=== PATIENT | female | born 1985 | race Caucasian/White ===

== ENCOUNTER 2018-08-28 09:48 | Emergency (ER) | payer MEDICAID ==
--- NOTE | 2018-08-28 09:54 | EDM.PDOC ---
ED HPI GENERAL MEDICAL PROBLEM - General Chief Complaint: Abdominal Pain Stated Complaint: WITH ABDOMINAL PAIN Time Seen by Provider: 08/28/18 09:53 Source of Information: Reports: Patient History Limitations: Reports: No Limitations - History of Present Illness INITIAL COMMENTS - FREE TEXT/NARRATIVE: HISTORY AND PHYSICAL: History of present illness: Patient is a 33-year-old female who presents to the emergency room with complaints of generalized abdominal pain since last night. She states 3 days ago she did take a test, which was positive. She denies any abdominal cramping, back pain, vaginal bleeding or discharge. Patient denies any fever, chills, headache, change in vision, syncope or near syncope. Denies any chest pain, shortness of breath or cough. Denies any nausea, vomiting, diarrhea, constipation or dysuria. Has not noted any blood in urine or stool. Patient has been eating and drinking appropriately. Last menstrual period was 07/25/2018. 2, para 1. Recently moved here from [place], does not have any primary care or [facility] care here. Review of systems: As per history of present illness and below otherwise all systems reviewed and negative. Past medical history: As per history of present illness and as reviewed below otherwise noncontributory. Surgical history: As per history of present illness and as reviewed below otherwise noncontributory. Social history: See social history for further information Family history: As per history of present illness and as reviewed below otherwise noncontributory. Physical exam: General: Well-developed and well-nourished 33-year-old female. Alert and oriented. Nontoxic appearing and in no acute distress. HEENT: Atraumatic, normocephalic, pupils equal and reactive bilaterally, negative for conjunctival pallor or scleral icterus, mucous membranes moist, trachea midline. No drooling or trismus noted. No meningeal signs. No hot potato voice noted. Lungs: Clear to auscultation, breath sounds equal bilaterally, chest nontender. Heart: S1S2, regular rate and rhythm without overt murmur Abdomen: Soft, nondistended, nontender. Negative for masses or hepatosplenomegaly. Negative for costovertebral tenderness. Pelvis: Stable nontender. Genitourinary: External genitalia appears within normal limits. Cervical os is closed. No vaginal discharge or blood noted in the vaginal vault. Patient has no tenderness speculum exam. Negative chandelier sign. Rectal: Deferred. Skin: Intact, warm, dry. No lesions or rashes noted. Extremities: Atraumatic, moves all extremities per self without difficulty or deficits, negative for cords or calf pain. Neurovascular unremarkable. Neuro: Awake, alert, oriented. Cranial nerves II through XII unremarkable. Cerebellum unremarkable. Motor and sensory unremarkable throughout. Exam nonfocal. Notes: Patient did report that she is a daily smoker but is currently trying to cut back. Prior to finding out she was she was a daily drinker as well. She has not drink in the past 2 weeks she reports. Denies any drug use. Lab work is unremarkable. Vital signs remained stable. US shows findings suspicious for a right adnexal ectopic gestation.Small amount of free fluid in the right adnexal region and in the cul-de-sac. Dr Polanco, unassigned OBGYN, was consulted on this patient. Come in and evaluate the patient. Dr Polanco here to evaluate patient. She would like to see the patient on Friday for further evaluation and management. We did give her community resource sheet with local Supportive care measures were reviewed and discussed. Voices understanding and is agreeable to plan of care. Denies any further questions or concerns at this time. Diagnostics: CBC, CMP, UA, urine , quantitative hCG, lipase Therapeutics: None Prescription: None Impression: Abdominal Pain in First Trimester Plan: 1. Stop Smoking. 2. Take vitamin daily. Tylenol as needed for pain. 3. You have an appointment with Dr Polanco on 09/01/2018 at 3:30pm at [facility]. 4. Return to the ED as needed as discussed. Definitive disposition and diagnosis as appropriate pending reevaluation and review of above. abd Pain Score (Numeric/FACES): 5 headache Pain Score (Numeric/FACES): 3 - Related Data Allergies Allergy/AdvReac Type Severity Reaction Status Date / Time Penicillins Allergy Rash Verified 08/28/18 09:59 Home Meds: Home Meds . [No Known Home Meds] 08/28/18 [History] ED ROS GENERAL - Review of Systems Review Of Systems: ROS reveals no pertinent complaints other than HPI. ED EXAM, GI/ABD - Physical Exam Exam: See Below (See dictation) Course - Vital Signs Last Recorded V/S: Last Vital Signs Temp 96.9 F 08/28/18 09:59 Pulse 89 08/28/18 12:20 Resp 18 08/28/18 09:59 BP 116/68 08/28/18 12:20 Pulse Ox 98 08/28/18 09:59 - Orders/Labs/Meds Labs: Laboratory Tests 08/28/18 08/28/18 08/28/18 Range/Units 10:00 10:00 10:00 WBC 8.66 (4.0-11.0) K/uL RBC 4.13 L (4.30-5.90) M/uL Hgb 13.2 (12.0-16.0) g/dL Hct 39.8 (36.0-46.0) % MCV 96.4 (80.0-98.0) fL MCH 32.0 (27.0-32.0) pg MCHC 33.2 (31.0-37.0) g/dL RDW Std Deviation 44.1 (28.0-62.0) fl RDW Coeff of Cee 13 (11.0-15.0) % Plt Count 283 (150-400) K/uL MPV 9.20 (7.40-12.00) fL Neut % (Auto) 64.5 (48.0-80.0) % Lymph % (Auto) 28.6 (16.0-40.0) % [place] % (Auto) 5.4 (0.0-15.0) % Eos % (Auto) 1.2 (0.0-7.0) % Baso % (Auto) 0.3 (0.0-1.5) % Neut # (Auto) 5.6 (1.4-5.7) K/uL Lymph # (Auto) 2.5 H (0.6-2.4) K/uL [place] # (Auto) 0.5 (0.0-0.8) K/uL Eos # (Auto) 0.1 (0.0-0.7) K/uL Baso # (Auto) 0.0 (0.0-0.1) K/uL Nucleated RBC % 0.0 /100WBC Nucleated RBCs # 0 K/uL Sodium 138 (136-145) mmol/L Potassium 3.7 (3.5-5.1) mmol/L Chloride 104 (98-107) mmol/L Carbon Dioxide 25.8 (21.0-32.0) mmol/L BUN 14 (7.0-18.0) mg/dL Creatinine 0.7 (0.6-1.0) mg/dL Est Cr Clr Drug Dosing 81.34 mL/min Estimated GFR (MDRD) > 60.0 ml/min Glucose 88 (74-106) mg/dL Calcium 8.9 (8.5-10.1) mg/dL Total Bilirubin 0.3 (0.2-1.0) mg/dL AST 59 H (15-37) IU/L ALT 112 H (14-63) IU/L Alkaline Phosphatase 117 H (46-116) U/L Total Protein 7.3 (6.4-8.2) g/dL Albumin 3.6 (3.4-5.0) g/dL Globulin 3.7 (2.6-4.0) g/dL Albumin/Globulin Ratio 1.0 (0.9-1.6) Lipase 259 (73-393) U/L HCG, Quant 337.0 mIU/mL Urine Color Urine Appearance Urine pH (5.0-8.0) Ur Specific [place] (1.001-1.035) Urine Protein (NEGATIVE) mg/dL Urine Glucose (UA) (NEGATIVE) mg/dL Urine Ketones (NEGATIVE) mg/dL Urine Occult Blood (NEGATIVE) Urine Nitrite (NEGATIVE) Urine Bilirubin (NEGATIVE) Urine Urobilinogen (<2.0) EU/dL Ur Leukocyte Esterase (NEGATIVE) 08/28/18 Range/Units 10:05 WBC (4.0-11.0) K/uL RBC (4.30-5.90) M/uL Hgb (12.0-16.0) g/dL Hct (36.0-46.0) % MCV (80.0-98.0) fL MCH (27.0-32.0) pg MCHC (31.0-37.0) g/dL RDW Std Deviation (28.0-62.0) fl RDW Coeff of Cee (11.0-15.0) % Plt Count (150-400) K/uL MPV (7.40-12.00) fL Neut % (Auto) (48.0-80.0) % Lymph % (Auto) (16.0-40.0) % [place] % (Auto) (0.0-15.0) % Eos % (Auto) (0.0-7.0) % Baso % (Auto) (0.0-1.5) % Neut # (Auto) (1.4-5.7) K/uL Lymph # (Auto) (0.6-2.4) K/uL [place] # (Auto) (0.0-0.8) K/uL Eos # (Auto) (0.0-0.7) K/uL Baso # (Auto) (0.0-0.1) K/uL Nucleated RBC % /100WBC Nucleated RBCs # K/uL Sodium (136-145) mmol/L Potassium (3.5-5.1) mmol/L Chloride (98-107) mmol/L Carbon Dioxide (21.0-32.0) mmol/L BUN (7.0-18.0) mg/dL Creatinine (0.6-1.0) mg/dL Est Cr Clr Drug Dosing mL/min Estimated GFR (MDRD) ml/min Glucose (74-106) mg/dL Calcium (8.5-10.1) mg/dL Total Bilirubin (0.2-1.0) mg/dL AST (15-37) IU/L ALT (14-63) IU/L Alkaline Phosphatase (46-116) U/L Total Protein (6.4-8.2) g/dL Albumin (3.4-5.0) g/dL Globulin (2.6-4.0) g/dL Albumin/Globulin Ratio (0.9-1.6) Lipase (73-393) U/L HCG, Quant mIU/mL Urine Color YELLOW Urine Appearance CLEAR Urine pH 6.5 (5.0-8.0) Ur Specific [place] 1.010 (1.001-1.035) Urine Protein NEGATIVE (NEGATIVE) mg/dL Urine Glucose (UA) NEGATIVE (NEGATIVE) mg/dL Urine Ketones NEGATIVE (NEGATIVE) mg/dL Urine Occult Blood NEGATIVE (NEGATIVE) Urine Nitrite NEGATIVE (NEGATIVE) Urine Bilirubin NEGATIVE (NEGATIVE) Urine Urobilinogen 0.2 (<2.0) EU/dL Ur Leukocyte Esterase NEGATIVE (NEGATIVE) Departure - Departure Time of Disposition: 13:01 Disposition: Home, Self-Care 01 Clinical Impression: Abdominal pain during in first trimester - Discharge Information Referrals: PCP,None [Primary Care Provider] - Forms: ED Department Discharge Additional Instructions: The following information is given to patients seen in the emergency department who are being discharged to home. This information is to outline your options for follow-up care. We provide all patients seen in our emergency department with a follow-up referral. The need for follow-up, as well as the timing and circumstances, are variable depending upon the specifics of your emergency department visit. If you don't have a primary care physician on staff, we will provide you with a referral. We always advise you to contact your personal physician following an emergency department visit to inform them of the circumstance of the visit and for follow-up with them and/or the need for any referrals to a consulting specialist. The emergency department will also refer you to a specialist when appropriate. This referral assures that you have the opportunity for follow-up care with a specialist. All of these measure are taken in an effort to provide you with optimal care, which includes your follow-up. Under all circumstances we always encourage you to contact your private physician who remains a resource for coordinating your care. When calling for follow-up care, please make the office aware that this follow-up is from your recent emergency room visit. If for any reason you are refused follow-up, please contact the [facility] Emergency Department at and asked to speak to the emergency department charge nurse. [facility] [address] [place] [id number] 1. Stop Smoking. 2. Take vitamin daily. Tylenol as needed for pain. 3. You have an appointment with Dr Polanco on 09/01/2018 at 3:30pm at [facility]. 4. Return to the ED as needed as discussed.
[2018-08-28 10:51] LABS: CHLORIDE,CL 104 mmol/L (98-107); SODIUM,NA 138 mmol/L (136-145)
--- NOTE | 2018-08-28 12:14 | US ---
INDICATION: Pelvic pain. . Beta hCG 337. COMPARISON: None available. FINDINGS: Transvaginal ultrasound examination of the female pelvis was performed. No identifiable intrauterine gestational sac is seen. The uterus is anteverted and is normal in size. It measures SIZE cm. There is a small hypoechoic fibroid in the posterior uterine fundus measuring 1.2 centimeters in diameter. The endometrial lining is prominently increased in thickness at 15 mm, consistent with . The right ovary has a complex solid structure with prominently increased peripheral color Doppler flow measuring 2.1 by 1.7 centimeters, concerning for an ectopic gestation. There is no identifiable gestational sac or pole in this structure. There is a mild amount of free fluid adjacent to the right ovary. The right ovary is normal in size, measuring 3.2 x 3.8 x 1.8 centimeters. The left ovary is normal in appearance, with normal appearing follicular cysts. It measures 3.0 x 2.8 x 1.2 centimeters. There is normal color and pulse Doppler flow in the parenchyma of both ovaries. There is a tiny amount of free fluid in the cul-de-sac. The findings were discussed with ARON Galeana at 12 0 5 hours on 08/28/2018. IMPRESSION: Findings suspicious for a right adnexal ectopic gestation as described above. Small amount of free fluid in the right adnexal region and in the cul-de-sac. No sign of intrauterine gestation. Dictated by Emanuel Schultz MD @ Aug 28 2018 12:03PM Signed by Dr. Emanuel Schultz @ Aug 28 2018 12:12PM
--- NOTE | 2018-08-28 13:29 | PCM.CONS ---
H&P History of Present Illness - General Date of Service: 08/28/18 Admit Problem/Dx: Early , abdominal pain Source of Information: Patient History Limitations: Reports: No Limitations - History of Present Illness Initial Comments - Free Text/Narative: 33 yo with LMP 07/14/18 presents with an onset of lower abdominal pain last night. It is quite vague and has an occasional slight stabbing sensation-- but does not limit activity. She has had no vaginal bleeding. She was aware she was and concerned about the pain. She has just moved to [facility]. She denies vaginal discharge, itching or burning. Denies dysuria. No fever or chills. No nausea or vomiting. Quality: Reports: Ache, Dull, Stabbing (at times) abd Pain Score (Numeric/FACES): 5 headache Pain Score (Numeric/FACES): 3 - Related Data Allergies/Adverse Reactions: Allergies Allergy/AdvReac Type Severity Reaction Status Date / Time Penicillins Allergy Rash Verified 08/28/18 09:59 Home Medications: Home Meds . 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 Denies: Bloody Stool, Diarrhea, Decreased Appetite, Difficulty Swallowing, Hematemesis, Nausea (see HPI) Musculoskeletal: Reports: No Symptoms Skin: Reports: No Symptoms Psychiatric: Reports: No Symptoms Neurological: Reports: No Symptoms Hematologic/Lymphatic: Reports: No Symptoms Immunologic: Reports: No Symptoms Exam - Exam Exam: See Below - Vital Signs Vital Signs: Last Vital Signs Temp 36.1 C 08/28/18 09:59 Pulse 89 08/28/18 12:20 Resp 18 08/28/18 09:59 BP 116/68 08/28/18 12:20 Pulse Ox 98 08/28/18 09:59 Weight: 54.431 kg - Exam General: Alert, Oriented Lungs: Normal Respiratory Effort Cardiovascular: Regular Rate, Regular Rhythm GI/Abdominal Exam: Normal Bowel Sounds, Soft, No Distention. No: Guarding, Rigid, Rebound Back Exam: Normal Inspection, Full Range of Motion Extremities: Normal Inspection, Normal Range of Motion Skin: Warm, Dry, Intact Neuro Extensive - Mental Status: Alert, Oriented x3, Normal Mood/Affect, Normal Cognition Psychiatric: Alert, Normal Affect - Patient Data Lab Results Last 24 hrs: Laboratory Results - last 24 hr 08/28/18 08/28/18 08/28/18 Range/Units 10:00 10:00 10:00 WBC 8.66 (4.0-11.0) K/uL RBC 4.13 L (4.30-5.90) M/uL Hgb 13.2 (12.0-16.0) g/dL Hct 39.8 (36.0-46.0) % MCV 96.4 (80.0-98.0) fL MCH 32.0 (27.0-32.0) pg MCHC 33.2 (31.0-37.0) g/dL RDW Std Deviation 44.1 (28.0-62.0) fl RDW Coeff of Cee 13 (11.0-15.0) % Plt Count 283 (150-400) K/uL MPV 9.20 (7.40-12.00) fL Neut % (Auto) 64.5 (48.0-80.0) % Lymph % (Auto) 28.6 (16.0-40.0) % [place] % (Auto) 5.4 (0.0-15.0) % Eos % (Auto) 1.2 (0.0-7.0) % Baso % (Auto) 0.3 (0.0-1.5) % Neut # (Auto) 5.6 (1.4-5.7) K/uL Lymph # (Auto) 2.5 H (0.6-2.4) K/uL [place] # (Auto) 0.5 (0.0-0.8) K/uL Eos # (Auto) 0.1 (0.0-0.7) K/uL Baso # (Auto) 0.0 (0.0-0.1) K/uL Nucleated RBC % 0.0 /100WBC Nucleated RBCs # 0 K/uL Sodium 138 (136-145) mmol/L Potassium 3.7 (3.5-5.1) mmol/L Chloride 104 (98-107) mmol/L Carbon Dioxide 25.8 (21.0-32.0) mmol/L BUN 14 (7.0-18.0) mg/dL Creatinine 0.7 (0.6-1.0) mg/dL Est Cr Clr Drug Dosing 81.34 mL/min Estimated GFR (MDRD) > 60.0 ml/min Glucose 88 (74-106) mg/dL Calcium 8.9 (8.5-10.1) mg/dL Total Bilirubin 0.3 (0.2-1.0) mg/dL AST 59 H (15-37) IU/L ALT 112 H (14-63) IU/L Alkaline Phosphatase 117 H (46-116) U/L Total Protein 7.3 (6.4-8.2) g/dL Albumin 3.6 (3.4-5.0) g/dL Globulin 3.7 (2.6-4.0) g/dL Albumin/Globulin Ratio 1.0 (0.9-1.6) Lipase 259 (73-393) U/L HCG, Quant 337.0 mIU/mL Urine Color Urine Appearance Urine pH (5.0-8.0) Ur Specific [place] (1.001-1.035) Urine Protein (NEGATIVE) mg/dL Urine Glucose (UA) (NEGATIVE) mg/dL Urine Ketones (NEGATIVE) mg/dL Urine Occult Blood (NEGATIVE) Urine Nitrite (NEGATIVE) Urine Bilirubin (NEGATIVE) Urine Urobilinogen (<2.0) EU/dL Ur Leukocyte Esterase (NEGATIVE) 08/28/18 Range/Units 10:05 WBC (4.0-11.0) K/uL RBC (4.30-5.90) M/uL Hgb (12.0-16.0) g/dL Hct (36.0-46.0) % MCV (80.0-98.0) fL MCH (27.0-32.0) pg MCHC (31.0-37.0) g/dL RDW Std Deviation (28.0-62.0) fl RDW Coeff of Cee (11.0-15.0) % Plt Count (150-400) K/uL MPV (7.40-12.00) fL Neut % (Auto) (48.0-80.0) % Lymph % (Auto) (16.0-40.0) % [place] % (Auto) (0.0-15.0) % Eos % (Auto) (0.0-7.0) % Baso % (Auto) (0.0-1.5) % Neut # (Auto) (1.4-5.7) K/uL Lymph # (Auto) (0.6-2.4) K/uL [place] # (Auto) (0.0-0.8) K/uL Eos # (Auto) (0.0-0.7) K/uL Baso # (Auto) (0.0-0.1) K/uL Nucleated RBC % /100WBC Nucleated RBCs # K/uL Sodium (136-145) mmol/L Potassium (3.5-5.1) mmol/L Chloride (98-107) mmol/L Carbon Dioxide (21.0-32.0) mmol/L BUN (7.0-18.0) mg/dL Creatinine (0.6-1.0) mg/dL Est Cr Clr Drug Dosing mL/min Estimated GFR (MDRD) ml/min Glucose (74-106) mg/dL Calcium (8.5-10.1) mg/dL Total Bilirubin (0.2-1.0) mg/dL AST (15-37) IU/L ALT (14-63) IU/L Alkaline Phosphatase (46-116) U/L Total Protein (6.4-8.2) g/dL Albumin (3.4-5.0) g/dL Globulin (2.6-4.0) g/dL Albumin/Globulin Ratio (0.9-1.6) Lipase (73-393) U/L HCG, Quant mIU/mL Urine Color YELLOW Urine Appearance CLEAR Urine pH 6.5 (5.0-8.0) Ur Specific [place] 1.010 (1.001-1.035) Urine Protein NEGATIVE (NEGATIVE) mg/dL Urine Glucose (UA) NEGATIVE (NEGATIVE) mg/dL Urine Ketones NEGATIVE (NEGATIVE) mg/dL Urine Occult Blood NEGATIVE (NEGATIVE) Urine Nitrite NEGATIVE (NEGATIVE) Urine Bilirubin NEGATIVE (NEGATIVE) Urine Urobilinogen 0.2 (<2.0) EU/dL Ur Leukocyte Esterase NEGATIVE (NEGATIVE) Result Diagrams: 08/28/18 10:00 08/28/18 10:00 Consult PN Assessment/Plan (1) Abdominal pain during in first trimester SNOMED Code(s): 922135380 Code(s): O26.891 - OTH RELATED CONDITIONS, FIRST TRIMESTER; R10.9 - UNSPECIFIED ABDOMINAL PAIN Assessment:: Approximately 3-4 week Abdominal pain Problem List Initiated/Reviewed/Updated: Yes Plan: VS are stable, hemoglobin is normal. Quant is only 337. She does not have an acute abdomen. Discussed ultrasound findings of thickened endometrium and ovaries with a 2 cm complex right ovarian mass/cyst. This may very well be her corpus luteum--images are limited. However, ectopic has not been ruled out. Patient voices her understanding to this. At this juncture, she states she is capable of receiving ongoing care locally. Transportation is not an issue. Discussed we are very early into the and need some serial follow up to determine the course of the . She voices her understanding. My clinic number is provided for her. She will call with vaginal bleeding or increasing abdominal pain. Otherwise, will follow up with her in clinic early next week for follow up labs, exam and sonogram. She agrees to plan of care.
== END 2018-08-28 13:10 | disposition home or self-care (01) ==
LOC: MW.ED 09:48
DX: O99.89 Other specified diseases and conditions complicating pregnancy, childbirth and the puerperium (principal); R10.84 Generalized abdominal pain; Z88.0 Allergy status to penicillin; Z3A.01 Less than 8 weeks gestation of pregnancy
CPT/HCPCS: 36415; 76817; 76817-26; 80053; 81003; 83690; 84702; 85025; 99284-25

== ENCOUNTER 2018-09-21 09:06 | Day surgery (SDC) | payer MEDICAID ==
[~2018-09-21 09:06] MED LIST: Bupivacaine 0.25% 10 ML SDV ONE; Clindamycin Phosphate in D5W 900 MG in Premix Bag 1 BAG IV SCH; Fluorescein 5 ML Vial ONE; Lactated Ringers 1,000 ML IV SCH; Sodium Chloride 0.9% 10 ML SDV IV PRN; Sodium Chloride 0.9% 10 ML Syringe FLUSH PRN; Sodium Chloride 0.9% 2.5 ML Syringe FLUSH PRN
[2018-09-21] MEDS ORDERED: Ondansetron 4 MG/2 ML SDV ONE (10:24)
[2018-09-21] MEDS ORDERED: Neostigmine Methylsulfate 1 MG/ML 5 ML Syringe ONE (10:24)
[2018-09-21] MEDS ORDERED: Glycopyrrolate 0.2 MG/ML SDV ONE (10:24)
[2018-09-21] MEDS ORDERED: Lidocaine 2% 5 ML SDV ONE (10:24)
[2018-09-21] MEDS ORDERED: Propofol 200 MG/20 ML SDV ONE (10:24)
[2018-09-21] MEDS ORDERED: Rocuronium 100 MG/10 ML MDV ONE (10:24)
[2018-09-21] MEDS ORDERED: fentaNYL 250 MCG/5 ML SDV ONE (10:25)
--- NOTE | 2018-09-21 10:25 | PCM.PREANE ---
Preanesthetic Assessment - Anesthesia/Transfusion/Family Hx Anesthesia History: No Prior Anesthesia Other Type of Anesthesia Reaction Comment: denies anesthesia with prior procedures Family History of Anesthesia Reaction: No Transfusion History: Prior Transfusion Without Reaction - Review of Systems General: No Symptoms Pulmonary: No Symptoms Cardiovascular: No Symptoms Gastrointestinal: No Symptoms Neurological: No Symptoms Other: Reports: None - Physical Assessment NPO Status Date: 09/20/18 NPO Status Time: 22:00 O2 Sat by Pulse Oximetry: 96 Respiratory Rate: 16 Vital Signs: Last Vital Signs Temp 97.5 F 09/21/18 09:20 Pulse 89 09/21/18 09:20 Resp 16 09/21/18 09:20 BP 104/55 L 09/21/18 09:20 Pulse Ox 96 09/21/18 09:20 Height: 4 ft 11 in Weight: 55.792 kg ASA Class: 2 Mental Status: Alert & Oriented x3 Airway Class: Mallampati = 2 Dentition: Reports: Normal Dentition ROM/Head Extension: Other Lungs: Clear to Auscultation, Normal Respiratory Effort Cardiovascular: Regular Rate, Regular Rhythm - Lab Values: Laboratory Last Values WBC 7.91 K/uL (4.0-11.0) 09/21/18 09:21 RBC 3.89 M/uL (4.30-5.90) L 09/21/18 09:21 Hgb 12.6 g/dL (12.0-16.0) 09/21/18 09:21 Hct 36.6 % (36.0-46.0) 09/21/18 09:21 MCV 94.1 fL (80.0-98.0) 09/21/18 09:21 MCH 32.4 pg (27.0-32.0) H 09/21/18 09:21 MCHC 34.4 g/dL (31.0-37.0) 09/21/18 09:21 RDW Std Deviation 41.2 fl (28.0-62.0) 09/21/18 09:21 RDW Coeff of Cee 12 % (11.0-15.0) 09/21/18 09:21 Plt Count 275 K/uL (150-400) 09/21/18 09:21 MPV 9.00 fL (7.40-12.00) 09/21/18 09:21 Nucleated RBC % 0.0 /100WBC 09/21/18 09:21 Nucleated RBCs # 0 K/uL 09/21/18 09:21 HCG, Qual POSITIVE (NEG) H 09/21/18 09:21 - Allergies Allergies/Adverse Reactions: Allergies Allergy/AdvReac Type Severity Reaction Status Date / Time Penicillins Allergy Hives Verified 09/16/18 11:20 - Anesthesia Plan Pre-Op Medication Ordered: None - Acknowledgements Anesthesia Type Planned: General Anesthesia Pt an Appropriate Candidate for the Planned Anesthesia: Yes Alternatives and Risks of Anesthesia Discussed w Pt/Guardian: Yes Pt/Guardian Understands and Agrees with Anesthesia Plan: Yes Additional Comments: anes prob list: hep C- not yet treated, hx of AUD- in prolongued remission x 1 yr, heteropic 7 weeks PLAN: GET PreAnesthesia Questionnaire HEENT History: Reports: None Respiratory History: Reports: Asthma Other Respiratory History: hx of Exercised induced Asthma as a child- does not use an inhaler now Gastrointestinal History: Reports: Hepatitis Other Gastrointestinal History: hx of Hepatitis C DIGITAL COMMENTATOR History: Reports: Ectopic , Psychiatric History: Reports: Addiction, Depression Hematologic History: Reports: Blood Transfusion(s) Other Hematologic History: had a blood transfusion from her mother as a because of Rh incompatability - Infectious Disease History Infectious Disease History: Reports: Hepatitis C - Past Surgical History HEENT Surgical History: Reports: Oral Surgery Other HEENT Surgeries/Procedures: wisdom teeth removal Female Surgical History: Reports: D&C, LEEP - SUBSTANCE USE Smoking Status *Q: Current Every Day Smoker Tobacco Use Within Last Twelve Months: Cigarettes Recreational Drug Use History: Yes - HOME MEDS Home Medications: Home Meds Vit No.78/Iron/Fa [Prenatabs FA] 1 tab PO DAILY 09/16/18 [History] - CURRENT (IN HOUSE) MEDS Current Meds: Current Medications Clindamycin Phosphate 900 mg/ (Premix) 50 mls @ 89.286 mls/hr IV ONETIME JUDY Last Admin: 09/21/18 09:49 Dose: 89.286 mls/hr Lactated Ringer's (Ringers, Lactated) 1,000 mls @ 125 mls/hr IV ASDIRECTED JUDY Sodium Chloride (Saline Flush) 10 ml FLUSH ASDIRECTED PRN PRN Reason: Keep Vein Open Sodium Chloride (Saline Flush) 2.5 ml FLUSH ASDIRECTED PRN PRN Reason: Keep Vein Open Sodium Chloride (Normal Saline) 10 ml IV ASDIRECTED PRN PRN Reason: IV Use Discontinued Medications Bupivacaine HCl (Sensorcaine-Mpf 0.25%) Confirm Administered Dose 10 ml .ROUTE .[facility]-MED ONE Stop: 09/21/18 07:40 Fluorescein Sodium (Ak-Fluor) Confirm Administered Dose 5 ml .ROUTE .[facility]-MED ONE Stop: 09/21/18 07:40
[2018-09-21] MEDS ORDERED: Bupivacaine 0.25% 10 ML SDV ONE ×2 (11:34→11:35)
[2018-09-21] MEDS ORDERED: Dexamethasone 4 MG/ML 5 ML MDV ONE (12:32)
[2018-09-21] MEDS ORDERED: fentaNYL 100 MCG/2 ML SDV IVPUSH PRN (13:19)
--- NOTE | 2018-09-21 13:27 | PCM.OPNOTE ---
- General Post-Op/Procedure Note Date of Surgery/Procedure: 09/21/18 Operative Procedure(s): Operative laparoscopy with excision of right ovarian masses Findings: Normal appearing fallopian tubes. Normal appearing left ovary. Right ovary with 2 ovarian masses. Pre Op Diagnosis: Right adnexal mass/possible heterotopic Post-Op Diagnosis: Same Anesthesia Technique: General ET Tube Primary Surgeon: Gi Polanco Currency Machine Operator: Angela Polk Fluid Replacement, Intraop: 1,300 EBL in mLs: 10 Complications: none known Condition: Stable Free Text/Narrative:: Dictation [id number]
--- NOTE | 2018-09-21 13:42 | PCM.POSTAN ---
POST ANESTHESIA ASSESSMENT - MENTAL STATUS Mental Status: Alert, Oriented - RESPIRATORY Respiratory Status: Respiratory Rate WNL, Airway Patent, O2 Saturation Stable - CARDIOVASCULAR CV Status: Pulse Rate WNL, Blood Pressure Stable - GASTROINTESTINAL GI Status: No Symptoms - POST OP HYDRATION Hydration Status: Adequate & Stable
--- NOTE | 2018-09-21 13:52 | PCM48HPAN ---
Post Anesthesia Note - EVALUATION WITHIN 48HRS OF ANESTHETIC Vital Signs in Normal Range: Yes Patient Participated in Evaluation: Yes Respiratory Function Stable: Yes Airway Patent: Yes Cardiovascular Function Stable: Yes Hydration Status Stable: Yes Pain Control Satisfactory: Yes Nausea and Vomiting Control Satisfactory: Yes Mental Status Recovered: Yes Resp Rate: 15
--- NOTE | 2018-09-21 15:16 | US ---
EXAMINATION: Transvaginal obstetric ultrasound HISTORY: COMPARISON: 08/28/2018 TECHNIQUE: Grayscale, color Doppler, and spectral Doppler imaging obtained. FINDINGS: There is a single live intrauterine noted with a visualized pole and yolk sac. heart rate is 151 bpm. The crown-rump length measures 1.3 cm, giving an estimated gestational age at 7 weeks and 3 days and estimated date of delivery to 10/18/2019. Right ovary is mildly prominent in size and demonstrates an elongated appearance. Left ovary appears normal in size demonstrating normal color and spectral Doppler flow. Small amount of free fluid within the right adnexa. IMPRESSION: 1. Live Intrauterine is noted . 2. The right adnexa is heterogeneous with an elongated appearance to the ovary.
--- NOTE | 2018-09-21 16:34 | OR ---
SURGEON: Gi Polanco M.D. DATE OF PROCEDURE: 09/21/2018 PREOPERATIVE DIAGNOSIS: Right adnexal mass, possible heterotopic . POSTOPERATIVE DIAGNOSIS: Right adnexal mass, possible heterotopic . PROCEDURE: Operative laparoscopy with excision of right ovarian masses. PRIMARY SURGEON: Gi Polanco MD. TREE KILLER: Nathalie Polk. ANESTHESIA: General endotracheal anesthesia. FLUIDS: 1300 mL of crystalloid. ESTIMATED BLOOD LOSS: 10 mL. COMPLICATIONS: None known. FINDINGS: Right ovarian masses. Normal-appearing fallopian tubes. Normal-appearing left ovary. DISPOSITION: The patient to PACU in stable condition. PROCEDURE DETAILS: Anamaria is a 33-year-old female, who recently was seen initially in the emergency department with some vague abdominal discomfort. Ultrasound was concerning for gestational sac with right adnexal mass, possible ectopic . With followup in serial HCG levels and sonogram, actually developed an intrauterine with cardiac activity and a persistent right adnexal mass with peripheral vascular blood flow that was concerning for ectopic . The patient actually saw Perinatology last week, who confirmed that this was quite suspicious for possible heterotopic . Given these findings, and after a long discussion, the patient opted to proceed with surgical intervention in form of laparoscopy to further evaluate the right adnexa and treatment of an ectopic present. The patient understands risks of the procedure, especially risks in the first trimester of with the intrauterine present. Anesthesia has been notified and has consulted with the patient. The patient understands there is no guarantee of outcome in the first trimester of for the intrauterine . After proper consent was obtained, the patient was taken to the operating room where she underwent general endotracheal anesthesia, was placed in modified dorsal supine position. SCDs to lower extremity. Bladder was drained. Was prepped and draped in usual sterile fashion. A time-out was performed. Received clindamycin prophylactically. Infraumbilically, after prepping the region with 0.25% Marcaine, 5 mm skin incision was created. Anterior abdominal wall tented upward. Veress needle was then gently introduced. Saline hanging drop test was performed. Pneumoperitoneum was achieved. After removal of Veress needle, 5 mm trocar was introduced with laparoscope, peritoneal contents were identified. A right lower quadrant 10 mm trocar and a left lower quadrant 5 mm trocar now introduced under direct visualization after prepping these regions with 0.25% Marcaine and creating incisions. The uterus was able to be visualized gently. I isolated the right fallopian tube and followed out to the fimbriated end. There was really no mass associated with the right fallopian tube. However, the right ovary had an almost dumbbell appearance of masses on either side of the normal appearing tissue within the middle. The left fallopian tube appears normal. Left ovary appears normal. Therefore, given this abnormal finding to the right ovary, opted to excise these two lesions or masses along the right ovary using LigaSure. Therefore, gently tented the masses at their base with Allis laparoscopic grasper and excised with the LigaSure using the endobag. This was introduced through the right lower quadrant trocar and the masses were placed into the endobag and then removed through the right lower quadrant trocar incisional site. Specimens will be sent to pathology. Trocar was reintroduced. Pelvis was copiously irrigated, suction dried. Region of operative site was closely inspected, found to be hemostatic. Relief pressure was decreased to 5 mmHg. The operative site still appeared hemostatic. Therefore, was able to release pneumoperitoneum, remove the right and left lower quadrant trocars under direct visualization. Released as much of the pneumoperitoneum as possible and removed the laparoscope and infraumbilical trocar. Skin edges were reapproximated using 3-0 Vicryl in subcuticular fashion. The patient has tolerated the procedure well overall. She will go to PACU in stable condition. We will re-evaluate intrauterine viability of fetus in the Day Surgery area. Specimens to pathology. Sponge, instrument, and needle count was correct x2. KEVIN / SUBHASH /[id number] AJ
== END 2018-09-21 14:20 | disposition home or self-care (01) ==
LOC: MW.SDS 09:06
PROVIDERS: ATTEND Obstetrics & Gynecology
DX: O99.89 Other specified diseases and conditions complicating pregnancy, childbirth and the puerperium (principal); N83.8 Other noninflammatory disorders of ovary, fallopian tube and broad ligament; O99.331 Smoking (tobacco) complicating pregnancy, first trimester; F17.210 Nicotine dependence, cigarettes, uncomplicated; O99.511 Diseases of the respiratory system complicating pregnancy, first trimester; J45.990 Exercise induced bronchospasm; O98.411 Viral hepatitis complicating pregnancy, first trimester; B19.20 Unspecified viral hepatitis C without hepatic coma; Z3A.01 Less than 8 weeks gestation of pregnancy; Z88.0 Allergy status to penicillin; Z79.899 Other long term (current) drug therapy
CPT/HCPCS: 36415; 58662; 76815; 84703; 85027; A4217; J1100; J2001; J2405; J2704; J3010; J3490; J7120; 88305

== ENCOUNTER 2018-09-23 17:19 | Emergency (ER) | payer MEDICAID ==
--- NOTE | 2018-09-23 17:35 | EDM.PDOC ---
ED HPI GENERAL MEDICAL PROBLEM - General Chief Complaint: [facility] Problem Stated Complaint: post surgery bleeding Time Seen by Provider: 09/23/18 17:35 Source of Information: Reports: Patient History Limitations: Reports: No Limitations - History of Present Illness INITIAL COMMENTS - FREE TEXT/NARRATIVE: HISTORY AND PHYSICAL: History of present illness: Patient is a 33-year-old female approximately 8 weeks gestation, presents to the ED for concern of vaginal bleeding. She states that she had surgery [address] Polanco to remove a tubal mass. She reports they thought it was a twin gestation with one ectopic and one IUG but mass turned out not to be a fetus. She reports that today when she went to the bathroom there was blood on the tissue. She denies any pain at this time. Review of systems: As per history of present illness and below otherwise all systems reviewed and negative. Past medical history: As per history of present illness and as reviewed below otherwise noncontributory. Surgical history: As per history of present illness and as reviewed below otherwise noncontributory. Social history: No reported history of drug or alcohol abuse. Family history: As per history of present illness and as reviewed below otherwise noncontributory. Physical exam: General: Patient sitting comfortably in no acute distress and nontoxic appearing HEENT: Atraumatic, normocephalic, pupils reactive, negative for conjunctival pallor or scleral icterus, mucous membranes moist, throat clear, neck supple, nontender, trachea midline. No meningeal signs. Lungs: Clear to auscultation, breath sounds equal bilaterally, chest nontender. Heart: S1S2, regular, negative for clicks, rubs, or overt murmur. Abdomen: Soft, nondistended, nontender. Negative for masses or hepatosplenomegaly. Negative for costovertebral tenderness. No rigidity, rebound , guarding. Pelvis: Stable nontender. Genitourinary: Deferred. Rectal: Deferred. Extremities: Atraumatic, negative for cords or calf pain. Neurovascular unremarkable. Neuro: Awake, alert, oriented. Cranial nerves II through XII unremarkable. Cerebellum unremarkable. Motor and sensory unremarkable throughout. Exam nonfocal. Notes: Diagnostics: CBC, ABO/Rh, serum hcg, pelvic US Therapeutics: None Prescriptions: None Impression: Vaginal bleeding in Plan: 1. pelvic rest as instructed 2. Follow-up with [facility]PAT[facility] 3. Return to ED as needed as discussed Definitive disposition and diagnosis as appropriate pending reevaluation and review of above. - Related Data Allergies Allergy/AdvReac Type Severity Reaction Status Date / Time Penicillins Allergy Hives Verified 09/23/18 17:26 Home Meds: Home Meds Vit No.78/Iron/Fa [Prenatabs FA] 1 tab PO DAILY 09/16/18 [History] Past Medical History HEENT History: Reports: None Respiratory History: Reports: Asthma Other Respiratory History: hx of Exercised induced Asthma as a child- does not use an inhaler now Gastrointestinal History: Reports: Hepatitis Other Gastrointestinal History: hx of Hepatitis C [facility] History: Reports: Ectopic , Psychiatric History: Reports: Addiction, Depression Hematologic History: Reports: Blood Transfusion(s) Other Hematologic History: had a blood transfusion from her mother as a because of Rh incompatability - Infectious Disease History Infectious Disease History: Reports: Chicken Pox, Hepatitis C - Past Surgical History HEENT Surgical History: Reports: Oral Surgery Other HEENT Surgeries/Procedures: wisdom teeth removal Female Surgical History: Reports: D&C, LEEP Social & Family History - Family History Family Medical History: Noncontributory - Tobacco Use Smoking Status *Q: Never Smoker Second Hand Smoke Exposure: No - Caffeine Use Caffeine Use: Reports: None - Recreational Drug Use Recreational Drug Use: No ED ROS GENERAL - Review of Systems Review Of Systems: ROS reveals no pertinent complaints other than HPI. ED EXAM - Physical Exam Exam: See Below (see dictation) Course - Vital Signs Last Recorded V/S: Last Vital Signs Temp 97.2 F 09/23/18 17:26 Pulse 86 09/23/18 17:26 Resp 16 09/23/18 17:26 BP 103/53 L 09/23/18 17:26 Pulse Ox 97 09/23/18 17:26 - Orders/Labs/Meds Labs: Laboratory Tests 09/23/18 09/23/18 09/23/18 Range/Units 17:48 17:48 17:48 WBC 7.77 (4.0-11.0) K/uL RBC 3.71 L (4.30-5.90) M/uL Hgb 11.9 L (12.0-16.0) g/dL Hct 35.3 L (36.0-46.0) % MCV 95.1 (80.0-98.0) fL MCH 32.1 H (27.0-32.0) pg MCHC 33.7 (31.0-37.0) g/dL RDW Std Deviation 42.7 (28.0-62.0) fl RDW Coeff of Cee 12 (11.0-15.0) % Plt Count 281 (150-400) K/uL MPV 9.00 (7.40-12.00) fL Neut % (Auto) 50.9 (48.0-80.0) % Lymph % (Auto) 39.0 (16.0-40.0) % [place] % (Auto) 7.6 (0.0-15.0) % Eos % (Auto) 2.1 (0.0-7.0) % Baso % (Auto) 0.4 (0.0-1.5) % Neut # (Auto) 4.0 (1.4-5.7) K/uL Lymph # (Auto) 3.0 H (0.6-2.4) K/uL [place] # (Auto) 0.6 (0.0-0.8) K/uL Eos # (Auto) 0.2 (0.0-0.7) K/uL Baso # (Auto) 0.0 (0.0-0.1) K/uL Nucleated RBC % 0.0 /100WBC Nucleated RBCs # 0 K/uL HCG, Quant 058012.0 mIU/mL Blood Type O POSITIVE Departure - Departure Time of Disposition: 19:40 Disposition: Home, Self-Care 01 Condition: Good Clinical Impression: Vaginal bleeding affecting early - Discharge Information Referrals: Gi Polanco MD [Primary Care Provider] - Forms: ED Department Discharge Additional Instructions: The following information is given to patients seen in the emergency department who are being discharged to home. This information is to outline your options for follow-up care. We provide all patients seen in our emergency department with a follow-up referral. The need for follow-up, as well as the timing and circumstances, are variable depending upon the specifics of your emergency department visit. If you don't have a primary care physician on staff, we will provide you with a referral. We always advise you to contact your personal physician following an emergency department visit to inform them of the circumstance of the visit and for follow-up with them and/or the need for any referrals to a consulting specialist. The emergency department will also refer you to a specialist when appropriate. This referral assures that you have the opportunity for follow-up care with a specialist. All of these measure are taken in an effort to provide you with optimal care, which includes your follow-up. Under all circumstances we always encourage you to contact your private physician who remains a resource for coordinating your care. When calling for follow-up care, please make the office aware that this follow-up is from your recent emergency room visit. If for any reason you are refused follow-up, please contact the [facility] Department at and asked to speak to the emergency department charge nurse. [facility] [address] [place], [place] [id number] [place] [address] 1. pelvic rest as instructed 2. Follow-up with DIRECTOR [facility]PATIENT SERVICES 3. Return to ED as needed as discussed
--- NOTE | 2018-09-23 19:39 | US ---
INDICATION: First trimester spotting TECHNIQUE: Ultrasound OB pelvis transvaginal. Real-time andrade-scale imaging of the pelvis was performed. COMPARISON: None FINDINGS: Sonographic imaging demonstrates a single living intrauterine gestation. The embryo demonstrates a regular cardiac rate measuring 158 beats per minute. The embryo`s crown rump length measurement of 1.7 cm corresponds to a gestational age of 8 weeks 2 days with a sonographic due date of May 03, 2019. There is a normal appearing yolk sac. There are no gross abnormalities noted within the embryo at this early state of development. The placenta has not yet developed. There is no sign of perigestational hemorrhage. Normal right ovary. Left ovary was not visualized. No adnexal mass. There are no suspicious fluid collections noted in the cul-de-sac. IMPRESSION: Single viable intrauterine 8 weeks 2 days. No abnormalities seen. Dictated by Anderson Jean MD @ Sep 23 2018 7:33PM Signed by Dr. Anderson Jean @ Sep 23 2018 7:39PM
== END 2018-09-23 19:48 | disposition home or self-care (01) ==
LOC: MW.ED 17:19
DX: O20.9 Hemorrhage in early pregnancy, unspecified (principal); Z88.0 Allergy status to penicillin; Z3A.08 8 weeks gestation of pregnancy
CPT/HCPCS: 36415; 76815; 76815-26; 84702; 85025; 86900; 86901; 99283; 99284-25